=== PATIENT | female | born 1990 | race Caucasian/White ===

== ENCOUNTER 2016-02-26 00:55 | Emergency (ER) | payer OTHER ==
[~2016-02-26 00:55] MED LIST: HYCET1 ML PO; KEPPRA500 MG PO; NEURONTIN100 MG PO; ONFI20 MG PO; ZARONTIN250 MG PO
--- NOTE | 2016-02-26 02:00 | ED ORDER SUMMARY ---
..... Patient: MYRNA PRESTON OrderSheet [facility] VisitID: [id number] [place] [address] 26y, F Registration Date/Time: 02/26/2016 ORDER SHEET Weight: 72.5 kg Allergies: No Known Drug Allergy GENERAL ORDERS: CBC w Diff Urgent (:02/26/2016 Alize BARRETO) (Ack 1:20 AMcQuoid ER Tech1) (1:33 LMuller) CMP Urgent (:02/26/2016 Alize BARRETO) (Ack 1:20 AMcQuoid ER Tech1) (1:33 LMuller) - (levatiracetam (Keppra) level) (:02/26/2016 Alize BARRETO) (Ack 1:20 AMcQuoid ER Tech1) (1:33 LMuller) MEDICATION ORDERS: IV FLUIDS: IV NS : initial bolus 1000 mL (1000 mL/hr), then none - (NOW) (02/26/2016 Alize BARRETO) (1:28 DBsommer R.N.) ORDER SHEET NOTES: [Electronically signed by Sanjiv Muro R.N. (02:46 02/26/2016)] [Electronically signed by Kathleen Rivera MD (19:05 02/27/2016)] [Electronically locked/signed by Sanjiv Muro R.N. (02:46 02/26/2016)]
--- NOTE | 2016-02-26 02:00 | ED CLINICAL REPORT ---
Clinical Report - Physicians/Mid Levels [facility] [address] [place] [address] 02/26/2016 0:54 Patient: MYRNA PRESTON Time Seen: 00:57. Arrived- By ambulance. Historian- patient and EMS personnel. HISTORY OF PRESENT ILLNESS Chief Complaint: ; Possible med overdose, seizure. Symptoms started today. Substances abused: Benzodiazepines and narcotics. No fever, chills, nausea, vomiting or diarrhea. No abdominal pain, tremors, seizure, agitation or delusions. No hallucinations or suicidal thoughts. Not confused or paranoid. The symptoms are described as moderate. No injuries noted. Pt took oxycodone, Xanax, and possibly, a double dose of her seizure meds today. Pt was at the sink and began to feel "weird". She states this is the way she feels before a seizure. She fell to the floor, and was found by a relative, who initiated CPR. However, when medics arrived, they found the pt to be semi-conscious. Per medics, pt has been alert and oriented throughout transport. Similar symptoms previously: None. Recent medical care: Not recently seen/assessed. REVIEW OF SYSTEMS The patient has had dizziness but not had weight loss. No sweats, weakness, chest pain, palpitations or black stools. No numbness, bloody stools, sore throat, cough or difficulty breathing. No difficulty with urination, skin abscess, joint pain or enlarged lymph nodes. The patient has had a moderate headache (recently). The patient has a history of migraine headaches. No difficulty walking. All systems otherwise negative, except as recorded above. PAST HISTORY Problems: Cholecystitis. Fibromyalgia. Seizure Disorder. Ovarian Cyst. Tetanus Status. LNMP - Last Normal Menstrual Period. Allergic Reaction. Immunizations. Epilepsy. Additional Surgeries: . Tubal Ligation. Medications: Clobazam Oral (Tablet 10 mg) 30mg , two times daily. Keppra Oral x3 500mg in a.m. and x4 500mg at bedtime. Neurontin Oral (pt. does not recall dose). Allergies: No Known Drug Allergy. SOCIAL HISTORY Former smoker. No alcohol use or drug use. ADDITIONAL NOTES The nursing notes have been reviewed. PHYSICAL EXAM Appearance: Alert. Oriented X3. No acute distress. Head: Head atraumatic. Eyes: Pupils equal, round and reactive to light. ENT: Normal ENT inspection. Airway intact. Moist mucous membranes. Neck: Normal inspection. CVS: Normal heart rate and rhythm. Heart sounds normal. Pulses normal. Respiratory: No respiratory distress. Breath sounds normal. Abdomen: Soft and nontender. Back: Normal inspection. Skin: Skin warm and dry. Normal skin color. No rash. Normal skin turgor. Extremities: Extremities exhibit normal ROM. No lower extremity edema. Neuro: Alert. Oriented X 3. Speech normal. Cranial nerves normal (as tested). No cerebellar findings. No motor deficit. No sensory deficit. (Pt is mildly tearful, but otherwise, mood and affect are normal.). LABS, X-RAYS, AND EKG Laboratory Tests: CBC w Diff: (OMARI: 02/26/2016 01:28) ( [facility] 02/26/2016 01:38) Final results Test Result Flag Units (Reference) WHITE BLOOD COUNT 6.6 K/uL (4.5-11.5) RED BLOOD COUNT 3.95 L M/uL (4.00-5.20) HEMOGLOBIN 11.6 L gm/dL (12.0-16.0) HEMATOCRIT 36.8 % (36.0-46.0) MEAN CELL VOLUME 93 fL (80-100) MEAN CORPUSCULAR HGB 29 pg (26-34) MEAN CORPUSCULAR HGB CONC 32 g/dL (31-37) RED CELL DISTRIBUTION WIDTH 13.1 % (11.6-14.8) PLATELET COUNT 204 K/uL (150-400) LYMPH % 25.3 % (25-40) MONO % 4.7 % (3-14) GRANULOCYTE % 70.0 (53-90) CMP: (OMARI: 02/26/2016 01:28) ( [facility] 02/26/2016 01:51) Final results Test Result Flag Units (Reference) GLUCOSE 162 H mg/dL (70-110) BUN 11 mg/dL (7-18) CREATININE 0.9 mg/dL (0.6-1.3) Estimated GFR >60 mL/min Estimated GFR- >60 mL/min Note: Persistent reduction over 3 months in eGFR<60 mL/min/1.73 m2 defines CKD. Patients with eGFR values>=60 mL/min/1.73 m2 may also have CKD if evidence ofpersistent proteinuria. Additional information may be foundat www.[email or web address].org. SODIUM 141 mmol/L (136-145) POTASSIUM 3.7 mmol/L (3.5-5.1) CHLORIDE 105 mmol/L (98-107) CARBON DIOXIDE 29 mmol/L (21-32) CALCIUM 8.5 mg/dL (8.5-10.1) TOTAL PROTEIN 6.9 g/dL (6.4-8.2) ALBUMIN 3.5 g/dL (3.3-5.0) BILIRUBIN, TOTAL 0.2 mg/dL (0.0-1.0) ALKALINE PHOSPHATASE 57 U/L (46-116) AST (SGOT) 138 H U/L (15-37) ALT (SGPT) 125 H U/L (12-78) . Pulse Oximetry: 02/26/2016 02:14 O2 saturation: 100%. (FIO2 - room air). Interpretation: normal. PROGRESS AND PROCEDURES Course of Care: Pt was worked up for her sx, given a liter of NS, and observed in the ED. Pt remained stable, and without further episodes. Work-up was negative. Patient counseled in person regarding the patient's stable condition, test results, diagnosis and need for follow-up. Concerns were addressed. Old medical records reviewed. Disposition: Discharged. Condition: stable. CLINICAL IMPRESSION Generalized seizure of unknown cause. History of epilepsy. INSTRUCTIONS (Your labs showed a mildly elevated blood sugar. You should have this rechecked by your doctor to make sure it is not chronically running high. Your liver labs were also mildly elevated. The cause of this is unclear.). Warnings: GENERAL WARNINGS: Return or contact your physician immediately if your condition worsens or changes unexpectedly, if not improving as expected, or if other problems arise. Your Current Medications: CONTINUE TAKING THE FOLLOWING MEDICATIONS: Clobazam Oral : Tablet 10 mg, 30mg two times daily. Keppra Oral : x3 500mg in a.m. and x4 500mg at bedtime. Neurontin Oral : pt. does not recall dose. Follow-up: Follow up with your doctor. Call for the next available appointment. Reason for referral: Follow up ER visit. Understanding of the discharge instructions verbalized by patient. (Electronically signed by Kathleen Rivera MD 02/27/2016 19:05)
--- NOTE | 2016-02-26 02:00 | ED NURSING NOTES ---
Clinical Report - Nurses [facility] [address] [place] [address] 02/26/2016 0:54 [id number] Acuity: LEVEL 3. Chief Complaint: ALTERED MENTAL STATUS. --01:07 Sanjiv Muro R.N. 01:02 02/26/16. Temp: 97.6 F. --01:07 Sanjiv Muro R.N. Weight: 72.5 kg. Height/Length: 65 inches. BMI: 26.6. --01:05 Sanjiv Muro R.N. Medications Clobazam Oral (Tablet 10 mg) 30mg , two times daily. Keppra Oral x3 500mg in a.m. and x4 500mg at bedtime. Neurontin Oral (pt. does not recall dose). --01:04 Sanjiv Muro R.N. Allergies No Known Drug Allergy. --01:04 Sanjiv Muro R.N. History ( Pt arrives via ems report that she was found down and someone had begun cpr. EMS state that pt became alert with stimulation and 02. Pt states that she may have taken a double dose of her seizure medication. Pt also took approximately 60mg oxycodone and an unknown amount of xanax). This started just prior to arrival. Treatment ANALYSIS ANALYST: None. --01:07 Sanjiv Muro R.N. PROBLEMS: Fibromyalgia. Cervical Strain. Seizure Disorder. Abdominal Pain. UTI - Urinary Tract Infection. Allergic Reaction. Otitis Media. Epilepsy. --01:06 Sanjiv Muro R.N. The following entry was modified by Kathleen Rivera MD, 01:14 Reason - duplicate <<STRICKEN ENTRY-- Seizure. --01:13 Kathleen Rivera MD --END STRIKE>>. ADDITIONAL SURGERIES: . Tubal Ligation. --01:06 Sanjiv Muro R.N. The following entry was struck by Kathleen Rivera MD, 01:14 Reason - duplicate <<STRICKEN ENTRY-- Previous Abdominal Surgery. --13:21 Kathleen Rivera MD --END STRIKE>>. Assessment The patient states feels better. --01: Sanjiv Muro R.N. Interventions ID band on patient. To treatment room. --01: Sanjiv Muro R.N. PHYSICAL ASSESSMENT GENERAL / NEURO / PSYCH: Alert. Oriented X 4. The patient is disoriented to situation. Speech within normal limits. RESPIRATORY: Respirations not labored. --01:08 Sanjiv Muro R.N. NURSING PROGRESS NOTES 01:24 02/26/2016 Site #1 started prior to arrival by EMS via IV antecubital space with an 20g angiocath. --:24 Sanjiv Muro R.N. :02/26/2016 Started bag #1 1000 mL IV Fluids IV NS (Saline); bolus of 1000 mL wide open via site #1. Allergies verified and confirmed 5 rights. IV patency established. IV site checked: no pain, redness, or swelling. IV flushed thoroughly pre- and post-medication administration. --: Sanjiv Muro R.N. Checked patient name and birthdate: patient confirmed. Blood samples drawn from the left antecubital space with Vacutainer and 21g butterfly by [employer] per protocol ; labeled in presence of the patient and sent to lab: florecita set. --01:32 Tahmina Ramirez. DISPOSITION / DISCHARGE Departure time: 0212. Bed requested. ( Pt ambulated on discharge steady on her feet, verbalized understanding of discharge instructions and follow up care.). --02:19 Sanjiv Muro R.N. 02:14 02/26/16. BP: 112/65. HR: 70. RR: 18. O2 saturation: 100%. Temp: 97.1 F. Pain level now 0/10. --02:19 Sanjiv Muro R.N. Reviewed medication(s). Prescription(s) given to the patient. Patient verbalized understanding. Written instructions provided in Tongan. The patient was discharged by the physician. She was discharged home and accompanied by staffing operations manager. She left the Emergency Department ambulatory. --02:19 Jina, Sanjiv, R.N. Locked/Released at 02/26/2016 2:46 by Sanjiv Muro R.N.
--- NOTE | 2016-02-26 02:00 | ED NURSING NOTES ---
Clinical Report - Nurses [facility] [address] [place] [address] 02/26/2016 0:54 [id number] TRIAGE Acuity: LEVEL 3. Chief Complaint: ALTERED MENTAL STATUS. --01:07 Sanjiv Muro R.N. 01:02 02/26/16. Temp: 97.6 F. --01:07 Sanjiv Muro R.N. Weight: 72.5 kg. Height/Length: 65 inches. BMI: 26.6. --01:05 Sanjiv Muro R.N. Medications Clobazam Oral (Tablet 10 mg) 30mg , two times daily. Keppra Oral x3 500mg in a.m. and x4 500mg at bedtime. Neurontin Oral (pt. does not recall dose). --01:04 Sanjiv Muro R.N. Allergies No Known Drug Allergy. --01:04 Sanjiv Muro R.N. History ( Pt arrives via ems report that she was found down and someone had begun cpr. EMS state that pt became alert with stimulation and 02. Pt states that she may have taken a double dose of her seizure medication. Pt also took approximately 60mg oxycodone and an unknown amount of xanax). This started just prior to arrival. Treatment CUSTOMS IMPORT SPECIALIST: None. --01:07 Sanjiv Muro R.N. PROBLEMS: Fibromyalgia. Cervical Strain. Seizure Disorder. Abdominal Pain. UTI - Urinary Tract Infection. Allergic Reaction. Otitis Media. Epilepsy. --01:06 Sanjiv Muro R.N. The following entry was modified by Kathleen Rivera MD, 01:14 Reason - duplicate <<STRICKEN ENTRY-- Seizure. --01:13 Kathleen Rivera MD --END STRIKE>>. ADDITIONAL SURGERIES: . Tubal Ligation. --01:06 Sanjiv Muro R.N. The following entry was struck by Kathleen Rivera MD, 01:14 Reason - duplicate <<STRICKEN ENTRY-- Previous Abdominal Surgery. --13:21 Kathleen Rivera MD --END STRIKE>>. Assessment The patient states feels better. --01: Sanjiv Muro R.N. Interventions ID band on patient. To treatment room. --01: Sanjiv Muro R.N. PHYSICAL ASSESSMENT GENERAL / NEURO / PSYCH: Alert. Oriented X 4. The patient is disoriented to situation. Speech within normal limits. RESPIRATORY: Respirations not labored. --01:08 Sanjiv Muro R.N. NURSING PROGRESS NOTES 01:24 02/26/2016 Site #1 started prior to arrival by EMS via IV antecubital space with an 20g angiocath. --:24 Sanjiv Muro R.N. :02/26/2016 Started bag #1 1000 mL IV Fluids IV NS (Saline); bolus of 1000 mL wide open via site #1. Allergies verified and confirmed 5 rights. IV patency established. IV site checked: no pain, redness, or swelling. IV flushed thoroughly pre- and post-medication administration. --: Sanjiv Muro R.N. Checked patient name and birthdate: patient confirmed. Blood samples drawn from the left antecubital space with Vacutainer and 21g butterfly by [employer] per protocol ; labeled in presence of the patient and sent to lab: florecita set. --01:32 Tahmina Ramirez. DISPOSITION / DISCHARGE Departure time: 0212. Bed requested. ( Pt ambulated on discharge steady on her feet, verbalized understanding of discharge instructions and follow up care.). --02:19 Sanjiv Muro R.N. 02:14 02/26/16. BP: 112/65. HR: 70. RR: 18. O2 saturation: 100%. Temp: 97.1 F. Pain level now 0/10. --02:19 Sanjiv Muro R.N. Reviewed medication(s). Prescription(s) given to the patient. Patient verbalized understanding. Written instructions provided in Fijian. The patient was discharged by the physician. She was discharged home and accompanied by home energy rater. She left the Emergency Department ambulatory. --02:19 Jina, Sanjiv, R.N. Locked/Released at 02/26/2016 2:46 by Sanjiv Muro R.N.
--- NOTE | 2016-02-26 02:00 | ED ORDER SUMMARY ---
..... Patient: MYRNA PRESTON OrderSheet [facility] VisitID: [id number] [place] [address] 26y, F Registration Date/Time: 02/26/2016 ORDER SHEET Weight: 72.5 kg Allergies: No Known Drug Allergy GENERAL ORDERS: CBC w Diff Urgent (:02/26/2016 Alize BARRETO) (Ack 1:20 AMcQuoid ER Tech1) (1:33 LMuller) CMP Urgent (:02/26/2016 Alize BARRETO) (Ack 1:20 AMcQuoid ER Tech1) (1:33 LMuller) - (levatiracetam (Keppra) level) (:02/26/2016 Alize BARRETO) (Ack 1:20 AMcQuoid ER Tech1) (1:33 LMuller) MEDICATION ORDERS: IV FLUIDS: IV NS : initial bolus 1000 mL (1000 mL/hr), then none - (NOW) (02/26/2016 Alize BARRETO) (1:28 DBsommer R.N.) ORDER SHEET NOTES: [Electronically signed by Sanjiv Muro R.N. (02:46 02/26/2016)] [Electronically signed by Kathleen Rivera MD (19:05 02/27/2016)] [Electronically locked/signed by Sanjiv Muro R.N. (02:46 02/26/2016)]
--- NOTE | 2016-02-27 19:06 | ED MED RECONCILIATION SUMMARY ---
Patient: MYRNA PRESTON Medication Reconciliation Report [facility] VisitID: [id number] [address] [place] [address] 26y, F Registration Date/Time: 02/26/2016 Weight: 72.5 kg Height/Length: 65 in. BMI: 26.6 ALLERGIES: No Known Drug Allergy The patient's Home Medications are listed below: CONTINUE TAKING THE FOLLOWING MEDICATIONS: Clobazam Oral (10 mg) 30mg , two times daily Keppra Oral x3 500mg in a.m. and x4 500mg at bedtime Neurontin Oral, pt. does not recall dose The source(s) of the original Home Medication information: Not obtained. The following Medications were given to the patient in the Emergency Department: IV NS IV Fluids bolus 1000 mL wide open, administered: 02/26/2016 1:28:00 AM The following Medications were prescribed to the patient: None.
--- NOTE | 2016-02-27 19:06 | ED DISCHARGE INSTRUCTIONS ---
Patient: MYRNA PRESTON General Instructions [facility] VisitID: [id number] [place] [address] 26y, F Registration Date/Time: 02/26/2016 Generalized seizure of unknown cause. History of epilepsy. INSTRUCTIONS (Your labs showed a mildly elevated blood sugar. You should have this rechecked by your doctor to make sure it is not chronically running high. Your liver labs were also mildly elevated. The cause of this is unclear.). Warnings: GENERAL WARNINGS: Return or contact your physician immediately if your condition worsens or changes unexpectedly, if not improving as expected, or if other problems arise. Your Current Medications: CONTINUE TAKING THE FOLLOWING MEDICATIONS: Clobazam Oral : Tablet 10 mg, 30mg two times daily. Keppra Oral : x3 500mg in a.m. and x4 500mg at bedtime. Neurontin Oral : pt. does not recall dose. Follow-up: Follow up with your doctor. Call for the next available appointment. Reason for referral: Follow up ER visit. Understanding of the discharge instructions verbalized by patient. ADDITIONAL INFORMATION Recurrent Seizure [Adult] You have had another seizure today. A common cause of recurrent seizure is missing doses of the seizure medicine. However, sometimes seizures are difficult to control even when you take the medicine correctly. If this is the case for you, it may be necessary to increase your dosage or add or change to another medicine. Home Care: For This Seizure: Since seizures are not predictable, you must avoid doing anything that might cause danger to you or others if you have another one. Therefore, until the seizures are under good control, take these precautions: Do not drive a car, bicycle or motorcycle Do not operate dangerous equipment such as power tools Use a shower instead of a bath Do not swim or climb (ladders, trees, roofs) Tell your close friends and relatives about your seizure and teach them what to do for you if it happens again. If you were prescribed a medicine to prevent seizures, take it exactly as directed. It does not work when taken on an "as needed" basis. Missing doses will increase the risk of having another seizure. If you miss a dose, take the missed dose as soon as you remember. If it is almost time for your next dose, skip the missed dose. Restart the medicine at your next scheduled time. Do not take extra medicine to make up the missed dose. Wear a "Medic-Alert" bracelet to advise emergency personnel of your condition. For Future Seizures: If You Are Alone: If you feel a seizure coming on, the best thing to do is to lie down on a bed or on the floor. Lie on your side, not on your back. This will prevent falling, promote drainage of oral secretions out of the mouth and prevent choking. Be sure that you are clear of any objects that might injure you during the seizure. Call for help if there is time. If Someone Is With You: If someone is with you before the seizure, they should help you get in a safe position and call for help. They should not try to force anything in your mouth once the seizure has begun. Doing this may cause injury. Follow Up with your doctor, or as directed by our staff. NOTE: For the safety of yourself and others on the road, certain states require that the treating doctor inform the Public Health Department of any adult who is treated for a seizure and is at risk of further seizures. In this case, the Department of Motor Vehicles (DMV) will be notified and a restriction will be placed on your drivers license until a doctor gives you medical clearance to drive again. Contact your treating doctor to find out if your state requires the reporting of patients with a seizures condition. Get Prompt Medical Attention if any of the following occur: Seizures occurring more often or becoming longer than usual Seizure lasting over 5 minutes No wake-up between seizures Remaining confused for more than 30 minutes after a seizure Injury during a seizure Fever over 100.4F (38.0C) Unusual irritability, drowsiness or confusion Stiff or painful neck Worsening headache You have been given the following additional information: Seizure, Recurrent [Adult] (Electronically signed by Kathleen Rivera MD 02/27/2016 19:05)
--- NOTE | 2016-02-27 19:06 | ED MAR SUMMARY ---
..... Medication Administration Record [facility] [address] [place] [address] Patient: MYRNA PRESTON Visit ID: [id number] 26y, F Weight: 72.5 kg Height/Length: 65 in BMI: 26.6 ALLERGIES: No Known Drug Allergy Start 01:28 02/26/2016 Sanjiv Muro RAmieNAmie Medication Administered: IV NS (SALINE), Dose: IV Fluids, Bolus: 1000 mL wide open, Dispensed: 1000 mL bag, Site: #1 . Medication Ordered: IV NS : initial bolus 1000 mL (1000 mL/hr), then none - (NOW).
--- NOTE | 2016-02-27 19:06 | ED MED RECONCILIATION SUMMARY ---
Patient: MYRNA PRESTON Medication Reconciliation Report [facility] VisitID: [id number] [address] [place] [address] 26y, F Registration Date/Time: 02/26/2016 Weight: 72.5 kg Height/Length: 65 in. BMI: 26.6 ALLERGIES: No Known Drug Allergy The patient's Home Medications are listed below: CONTINUE TAKING THE FOLLOWING MEDICATIONS: Clobazam Oral (10 mg) 30mg , two times daily Keppra Oral x3 500mg in a.m. and x4 500mg at bedtime Neurontin Oral, pt. does not recall dose The source(s) of the original Home Medication information: Not obtained. The following Medications were given to the patient in the Emergency Department: IV NS IV Fluids bolus 1000 mL wide open, administered: 02/26/2016 1:28:00 AM The following Medications were prescribed to the patient: None.
--- NOTE | 2016-02-27 19:06 | ED MAR SUMMARY ---
..... Medication Administration Record [facility] [address] [place] [address] Patient: MYRNA PRESTON Visit ID: [id number] 26y, F Weight: 72.5 kg Height/Length: 65 in BMI: 26.6 ALLERGIES: No Known Drug Allergy Start 01:28 02/26/2016 Sanjiv Muro RAmieNAmie Medication Administered: IV NS (SALINE), Dose: IV Fluids, Bolus: 1000 mL wide open, Dispensed: 1000 mL bag, Site: #1 . Medication Ordered: IV NS : initial bolus 1000 mL (1000 mL/hr), then none - (NOW).
== END 2016-02-26 02:12 | disposition home or self-care (01) ==
LOC: ED SRH 00:55
DX: G40.909 Epilepsy, unspecified, not intractable, without status epilepticus (principal); Z87.891 Personal history of nicotine dependence
CPT/HCPCS: 90100; 91429; 92000; 95059; 97770